=== PATIENT | male | born 1945 ===

== ENCOUNTER 2017-10-29 06:47 | Day surgery (SDC) | payer MEDICARE ==
[2017-10-15 14:35] VITALS: BMI 27.6
[2017-10-29] MEDS ORDERED: Propofol 10 mg/ml Inj (20 ML) ONE (07:44)
[2017-10-29] MEDS ORDERED: Phenylephrine 10 mg/ml Inj ONE (07:46)
[2017-10-29] MEDS ORDERED: Etomidate 20 mg/10ml Inj IV ONE (07:50)
[2017-10-29] MEDS ORDERED: Lactated Ringer's 1,000 ML IV ONE (09:10)
[2017-10-29] MEDS ORDERED: cefTRIAXone (Rocephin) 1 gm Inj ONE (09:12)
[2017-10-29] MEDS ORDERED: Lidocaine 2% Jelly (Uro-Jet) ONE (09:12)
[2017-10-29] MEDS ORDERED: Midazolam 2 MG/2 ML VIAL ONE (09:28)
[2017-10-29] MEDS ORDERED: cefTRIAXone (Rocephin) 1 gm Inj IM ONE (09:30)
[2017-10-29] MEDS ORDERED: Lidocaine 2% Jelly (Uro-Jet) TOP ONE (09:35)
[2017-10-29] MEDS ORDERED: Dexamethasone 4 mg/1 ml ONE (09:37)
[2017-10-29] MEDS ORDERED: Sevoflurane - Inhalation Anesthetic Liq (250 ml) ONE (09:41)
[2017-10-29] MEDS ORDERED: ePHEDrine 50 mg/ml Inj ONE (09:50)
[2017-10-29] MEDS ORDERED: Lactated Ringer's 500 ML IV ONE (10:00)
[2017-10-29] MEDS ORDERED: SODIUM CHLORIDE 750 ML IR ONE (11:09)
[2017-10-29] MEDS ORDERED: SODIUM CHLORIDE 250 ML IR ONE (11:09)
[2017-10-29] MEDS ORDERED: HYDROmorphone 0.5 mg/0.5 ml ISec IVP PRN (11:20)
[2017-10-29] MEDS ORDERED: Lactated Ringer's 1,000 ML IV SCH (11:30)
[2017-10-29] MEDS ORDERED: SODIUM CHLORIDE 3,000 ML IR ONE (11:35)
[2017-10-29 13:24] VITALS: TEMP 97.5; O2SAT 96
--- NOTE | 2017-10-29 13:28 | OP ---
PROCEDURE DATE: 10/29/2017 PREOPERATIVE DIAGNOSIS: Benign prostatic hypertrophy with obstructive symptoms. POSTOPERATIVE DIAGNOSIS: Benign prostatic hypertrophy with obstructive symptoms. PROCEDURE PERFORMED: GreenLight laser of the prostate. SURGEON: Trinity Davila MD DESCRIPTION OF PROCEDURE: The patient was placed in the operating table in the dorsal lithotomy position. The area of the groin was draped and prepped in a sterile manner. Under direct vision with the laser scope, I entered into the bladder atraumatically, identified the landmarks of what needed to be operated on. Using the laser fiber, I identified the distal margin of the resection and then began to resect. He had a rather large middle lobe and rather large lateral lobe. Prostate was measured at 145 grams prior to the surgery today, extended approximately 520,000 joules of energy to adenoma. Once this was done, I was able then finally to see the bilateral ureteral orifices, the verumontanum was circumferentially intact. A #22 three-way Moon catheter was inserted. I estimated blood loss to be very little less than 10 mL. At the end of the procedure, I placed 2% lidocaine into the bladder for local anaesthetic effect and then the patient was taken from the operating room in good condition. Trinity Davila MD
[2017-10-29 13:59] VITALS: BP 126/68; PULSE 66; RESP 18
== END 2017-10-29 14:30 | disposition home or self-care (01) ==
LOC: H.OPSURG 06:47
PROVIDERS: ATTEND Urology
DX: N40.1 Benign prostatic hyperplasia with lower urinary tract symptoms (principal)
CPT/HCPCS: 52648; J0131; J0696; J1100; J1885; J2001; J2250; J2370; J2405; J2704; J2765; J3010; J7120